=== PATIENT | male | born 1975 | race Caucasian/White ===

== ENCOUNTER 2020-07-27 14:28 | Emergency (ER) | payer OTHER | END 2020-07-27 22:08 | disposition home or self-care (01) | LOC: JVIRT 14:28 | DX: Z20.822 Contact with and (suspected) exposure to COVID-19 (principal) | CPT/HCPCS: C9803; G2251-GT; U0003; U0005 ==

== ENCOUNTER 2020-12-23 12:05 | Emergency (ER) | payer OTHER | END 2020-12-23 12:51 | disposition home or self-care (01) | LOC: JVIRT 12:05 | DX: Z11.52 Encounter for screening for COVID-19 (principal) | CPT/HCPCS: C9803; Q3014-GT; U0003; U0005 ==

== ENCOUNTER 2020-12-28 15:01 | Emergency (ER) | payer OTHER ==
[2020-12-28 15:44] VITALS: BP 138/81; PULSE 92; TEMP 98.6; BMI 34.1
== END 2020-12-28 15:51 | disposition home or self-care (01) ==
LOC: JER 15:01
DX: U07.1 COVID-19 (principal)
CPT/HCPCS: 87804; 87807; 99283-25; C9803; U0003; U0005

== ENCOUNTER 2020-12-28 21:43 | Emergency (ER) | payer OTHER ==
[2020-12-28 21:47] VITALS: TEMP 99.6; BMI 32.9
[2020-12-28] MEDS ORDERED: CASIRIVIMAB/IMDEVIMAB 10 ML in SODIUM CHLORIDE 100 ML IVPB ONE (21:55)
[2020-12-28 23:23] VITALS: BP 119/77; PULSE 99
== END 2020-12-28 23:23 | disposition home or self-care (01) ==
LOC: JER 21:43
DX: U07.1 COVID-19 (principal)
CPT/HCPCS: 99284-25; M0240; Q0240

== ENCOUNTER 2021-04-18 15:21 | Emergency (ER) | payer BC | END 2021-04-18 15:30 | disposition home or self-care (01) | LOC: JVIRT 15:21 | DX: Z20.822 Contact with and (suspected) exposure to COVID-19 (principal) | CPT/HCPCS: C9803; Q3014-GT; U0003; U0005 ==

== ENCOUNTER 2021-09-04 20:42 | Emergency (ER) | payer BC | END 2021-09-04 20:45 | disposition home or self-care (01) | LOC: JVIRT 20:42 | DX: Z11.52 Encounter for screening for COVID-19 (principal) | CPT/HCPCS: 0241U-QW; 99282-25 ==

== ENCOUNTER 2021-11-28 14:02 | Emergency (ER) | payer BC ==
[2021-11-28 14:06] VITALS: BP 138/87; PULSE 81; RESP 18; TEMP 98; BMI 29.7
[2021-11-28] MEDS ORDERED: SODIUM CHLORIDE 0.9% 500 ML INFUS.BAG IV ONE (14:12)
[2021-11-28] MEDS ORDERED: INSULIN REGULAR HUMAN 100 UNITS/ML *VIAL IVPUSH ONE (14:13)
[2021-11-28 14:59] LABS: HEMATOCRIT 46.6 % (35.4-49); HEMOGLOBIN 16.3 GM/dL (11.7-16.9); MCH 30.2 pg (25.7-33.7); MCHC 35.1 g/dl (32.0-35.9); MEAN CELL VOLUME 86.1 fl (80-96); MEAN PLT VOLUME 8.5 fl (7.5-11.1); PLATELET COUNT 243 10^3/uL (134-434); RBC 5.42 M/mm3 (4.00-5.60); RDW 12.5 % (11.9-15.9); WHITE BLOOD COUNT 9.8 K/mm3 (4.0-10.0)
[2021-11-28 15:29] LABS: VENOUS BASE EXCESS 0.1 mmol/L (-2-2); VENOUS O2 SATURATION 80.9 % (70-80); VENOUS PCO2 37.4 mmHg (38-52); VENOUS PH 7.427 (7.310-7.410)
[2021-11-28 15:39] LABS: CHLORIDE 98 mmol/L (98-107); SODIUM 134 mmol/L (136-145)
[2021-11-28 15:40] LABS: CALCIUM 9.3 mg/dL (8.5-10.1)
[2021-11-28 15:41] LABS: ANION GAP 10 MMOL/L (8-16); CO2 26 mmol/L (21-32)
[2021-11-28 15:45] LABS: GLUCOSE,RANDOM 491 mg/dL (74-106)
== END 2021-11-28 18:25 | disposition home or self-care (01) ==
LOC: JERFT 14:02
PROC: 3E013VG Introduction of Insulin into Subcutaneous Tissue, Percutaneous Approach (ICD-10-PCS; principal; 2021-11-28)
DX: R73.9 Hyperglycemia, unspecified (principal)
CPT/HCPCS: 36415; 80048; 82010; 82803; 82962; 83036; 84439; 84443; 85027; 99284-25

== ENCOUNTER 2022-03-08 09:26 | Emergency (ER) | payer BC | END 2022-03-08 09:35 | disposition home or self-care (01) | LOC: JVIRT 09:26 | DX: U07.1 COVID-19 (principal) | CPT/HCPCS: 0241U-QW; Q3014-GT ==